=== PATIENT | male | born 1960 | race Caucasian/White ===

== ENCOUNTER 2023-06-18 09:43 | Emergency (ER) | payer MEDICAID ==
[~2023-06-18] VITALS: Ht 167.6 cm; Wt 73.0 kg
[2023-06-18 09:46] VITALS: O2SAT 100
[2023-06-18] MEDS ORDERED: TETRACAINE 0.5% OPHTH DROPS 4ML RIGHTEYE ONE (10:15)
[2023-06-18] MEDS ORDERED: FLUORESCEIN SODIUM 1MG/STRIP LEFTEYE ONE (10:15)
[2023-06-18 10:58] LABS: BASOPHILS % 1.1 % (0.0-2.0); EOSINOPHILS % 5.9 % (0.0-5.0); HEMATOCRIT. 39.3 % (42.0-52.0); HEMOGLOBIN. 13.4 g/dL (14.0-18.0); LYMPHOCYTES % 27.6 % (20.0-50.0); MEAN CORPUSCULAR HEMOGLOBIN 32.2 pg (28.0-32.0); MEAN CORPUSCULAR VOLUME 94.5 fL (80.0-94.0); MEAN PLATELET VOLUME 7.5 fl (7.4-10.4); MONOCYTES % 10.7 % (2.0-8.0); NEUTROPHILS % 54.7 % (40.0-76.0); PLATELET 287 x1000/uL (130-400); RED BLOOD CELL COUNT 4.16 mill/uL (4.7-6.1); RED CELL DISTRIBUTION WIDTH 12.5 % (11.6-14.6); WHITE BLOOD COUNT 5.1 x1000/uL (4.5-11.0)
[2023-06-18 11:23] LABS: ALANINE AMINOTRANSFERASE 15 IU/L (10-49); ALBUMIN 4.1 g/dL (3.2-4.8); ASPARTATE AMINOTRANSFERASE 21 IU/L (<34); BILIRUBIN TOTAL 0.6 mg/dL (0.1-1.0); CALCIUM 9.6 mg/dL (8.7-10.4); CARBON DIOXIDE 28 mEq/L (21-32); CHLORIDE 105 mEq/L (98-107); GLUCOSE 183 mg/dL (70-105); POTASSIUM 4.2 mEq/L (3.5-5.1); PROTEIN TOTAL 7.8 g/dL (6.0-8.3); SODIUM 139 mEq/L (136-145); UREA NITROGEN BLOOD 17 mg/dL (9-23)
[2023-06-18 12:00] VITALS: BP 175/90; PULSE 75; RESP 16; TEMP 98.6
[2023-06-18] MEDS ORDERED: IOHEXOL-350 100 ML BOTTLE ONE (12:49)
== END 2023-06-18 16:04 | disposition home or self-care (01) ==
LOC: ER 10:01
DX: H43.12 Vitreous hemorrhage, left eye (principal); E11.9 Type 2 diabetes mellitus without complications
CPT/HCPCS: 99285; 70496; 76512; 80053; 82962; 85025; 36415; 70498; 70486; 70450; Q9967; 99284

== ENCOUNTER 2024-12-24 17:10 | Emergency (ER) | payer MEDICAID ==
[~2024-12-24] VITALS: Ht 165.1 cm; Wt 80.0 kg
[~2024-12-24 17:10] MED LIST: INSU100I28 SQ; METF-414 PO
[2024-12-24 17:18] VITALS: O2SAT 96
[2024-12-24] MEDS: KETOROLAC 30MG/ML VIAL IV ONE (17:53)
[2024-12-24] MEDS: SODIUM CHLORIDE 0.9% 1,000 ML IV ONE ×2 (17:54→19:15)
[2024-12-24] MEDS: ONDANSETRON HCL 4MG/2ML INJ IV ONE (17:54)
[2024-12-24 18:16] LABS: BASOPHILS % 0.2 % (0.0-2.0); EOSINOPHILS % 0.2 % (0.0-5.0); HEMATOCRIT. 38.2 % (42.0-52.0); HEMOGLOBIN. 13.3 g/dL (14.0-18.0); LYMPHOCYTES % 21.5 % (20.0-50.0); MEAN PLATELET VOLUME 7.3 fl (7.4-10.4); MONOCYTES % 8.1 % (2.0-8.0); NEUTROPHILS % 70.0 % (40.0-76.0); PLATELET 272 x1000/uL (130-400); RED BLOOD CELL COUNT 4.22 mill/uL (4.7-6.1); RED CELL DISTRIBUTION WIDTH 13.3 % (11.6-14.6)
[2024-12-24 18:30] LABS: ETHANOL BLOOD 278 mg/dL (<10); TROPONIN I HIGH SENSITIVITY 11 ng/L (3.0-53); UREA NITROGEN BLOOD 15 mg/dL (9-23)
[2024-12-24 18:32] LABS: CREATININE 1.4 mg/dL (0.6-1.3)
[2024-12-24 19:30] VITALS: TEMP 36.7
[2024-12-24] MEDS ORDERED: INSULIN REGULAR (HUMULIN R) 1000UNITS/10ML VIAL SUBCUT SCH (19:30)
[2024-12-24 21:04] LABS: TROPONIN I HIGH SENSITIVITY 10 ng/L (3.0-53)
[2024-12-24] MEDS: INSULIN REGULAR (HUMULIN R) 1000UNITS/10ML VIAL SUBCUT SCH (22:17)
[2024-12-24] MEDS ORDERED: METF-414 PO (22:31)
[2024-12-24] MEDS ORDERED: INSU100I28 SQ (22:31)
[2024-12-24] MEDS ORDERED: IOHEXOL-350 100 ML BOTTLE ONE (23:06)
[2024-12-24 23:37] VITALS: BP 154/87; PULSE 91; RESP 17; O2SAT 96
== END 2024-12-24 23:38 | disposition home or self-care (01) ==
LOC: ER 17:10
DX: F10.129 Alcohol abuse with intoxication, unspecified (principal); E11.65 Type 2 diabetes mellitus with hyperglycemia; I10 Essential (primary) hypertension; Z79.4 Long term (current) use of insulin; Z79.84 Long term (current) use of oral hypoglycemic drugs; Y90.9 Presence of alcohol in blood, level not specified
CPT/HCPCS: 80048; 82010; 80320; 82962; 83880; 85025; 85379; 84484; 36415; 71045; 71275; 93005; 96361; 96372; 96374; 96375; 99291; Q9967; J1815; J1885; J2405; J7030; Z7610; G0480

== ENCOUNTER 2024-12-25 00:40 | Emergency (ER) | payer MEDICAID ==
[~2024-12-25] VITALS: Ht 167.6 cm; Wt 75.0 kg
[2024-12-25 01:21] LABS: BASOPHILS % 0.4 % (0.0-2.0); EOSINOPHILS % 0.3 % (0.0-5.0); HEMATOCRIT. 37.7 % (42.0-52.0); HEMOGLOBIN. 13.2 g/dL (14.0-18.0); LYMPHOCYTES % 20.1 % (20.0-50.0); MEAN PLATELET VOLUME 7.2 fl (7.4-10.4); MONOCYTES % 7.6 % (2.0-8.0); NEUTROPHILS % 71.6 % (40.0-76.0); PLATELET 266 x1000/uL (130-400); RED BLOOD CELL COUNT 4.14 mill/uL (4.7-6.1); RED CELL DISTRIBUTION WIDTH 13.7 % (11.6-14.6)
[2024-12-25 01:32] LABS: CREATININE 1.4 mg/dL (0.6-1.3); UREA NITROGEN BLOOD 15.0 mg/dL (9-23)
[2024-12-25 01:33] LABS: TROPONIN I HIGH SENSITIVITY 12.0 ng/L (3.0-53)
[2024-12-25] MEDS: ACETAMINOPHEN 500MG TABLET PO ONE (01:46)
[2024-12-25 02:34] VITALS: BP 128/73; PULSE 90; RESP 18; TEMP 36.8; O2SAT 99
[2024-12-25 03:15] LABS: TROPONIN I HIGH SENSITIVITY 12 ng/L (3.0-53)
== END 2024-12-25 03:17 | disposition home or self-care (01) ==
LOC: ER 00:56
DX: R07.89 Other chest pain (principal); E11.9 Type 2 diabetes mellitus without complications; I10 Essential (primary) hypertension; Z79.84 Long term (current) use of oral hypoglycemic drugs
CPT/HCPCS: 36415; 71045; 80048; 84484; 85025; 93005; 99285